=== PATIENT | male | born 1975 | race Caucasian/White ===

== ENCOUNTER 2017-08-10 08:31 | Emergency (ER) | payer SELFPAY ==
[~2017-08-10] VITALS: Ht 165.1 cm; Wt 79.0 kg
[2017-08-10 08:49] VITALS: BP 151/98
== END 2017-08-10 10:15 | disposition left against medical advice (07) ==
LOC: ER 08:31
DX: M25.511 Pain in right shoulder (principal); M54.2 Cervicalgia; F17.200 Nicotine dependence, unspecified, uncomplicated; Z53.21 Procedure and treatment not carried out due to patient leaving prior to being seen by health care provider